=== PATIENT | male | born 1960 | race Hispanic/Latino ===

== ENCOUNTER 2020-10-27 12:37 | Emergency (ER) | payer SELFPAY ==
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
--- NOTE | 2020-10-27 14:21 | XRay Report ---
XR hip 2-3V LT INDICATION: fall, left hip pain, hx of surgery from fx. COMPARISON: None available. FINDINGS: Previous left hip arthroplasty noted. No periprosthetic fracture or loosening. No acute findings. Signer Name: Casey Dasilva MD Signed: 10/27/2020 2:16 PM Workstation Name: [id number]
[2020-10-27 14:45] VITALS: BP 112/90
== END 2020-10-27 16:13 | disposition home or self-care (01) ==
LOC: EDBD → ED 12:37
DX: S70.312A Abrasion, left thigh, initial encounter (principal); M25.552 Pain in left hip; F32.9 Major depressive disorder, single episode, unspecified; Z79.899 Other long term (current) drug therapy; Z90.49 Acquired absence of other specified parts of digestive tract; W01.0XXA Fall on same level from slipping, tripping and stumbling without subsequent striking against object, initial encounter; Y93.89 Activity, other specified; Y92.89 Other specified places as the place of occurrence of the external cause; Y99.8 Other external cause status